=== PATIENT | female | born 1975 | race Two or more races ===

== ENCOUNTER 2019-01-04 13:40 | Emergency (ER) | payer SELFPAY ==
[~2019-01-04] VITALS: Ht 162.6 cm; Wt 66.2 kg
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
[2019-01-04] MEDS ORDERED: FAMOTIDINE 20 MG TABLET. PO ONE (14:15)
[2019-01-04] MEDS ORDERED: ONDANSETRON ODT 4 MG TAB.RAPDIS. PO ONE (14:15)
[2019-01-04] MEDS ORDERED: ONDA4TAB12 PO (14:54)
[2019-01-04 15:00] VITALS: BP 176/95
== END 2019-01-04 15:00 | disposition home or self-care (01) ==
LOC: ER 13:40
DX: R11.2 Nausea with vomiting, unspecified (principal); R10.13 Epigastric pain; F17.210 Nicotine dependence, cigarettes, uncomplicated; Z77.098 Contact with and (suspected) exposure to other hazardous, chiefly nonmedicinal, chemicals
CPT/HCPCS: 99283; Q0162